=== PATIENT | female | born 1980 ===

== ENCOUNTER 2016-12-22 11:23 | Emergency (ER) | payer BC ==
[2016-12-22 11:45] VITALS: BP 118/81
--- NOTE | 2016-12-22 13:28 | UC ---
Skin Complaint HPI - HPI Summary HPI Summary: pt presents with c/o "bullseye" rash that she noticed this morning. Pt is frequently outside, can not recall being bit by a tick but is concenred about rash under right armpit. Pt reports that she has had flu like symptoms that began 2 weeks ago and have now resolved denies fever but does report body aches , chills and joint aches. - History of Current Complaint Chief Complaint: [employer] Time Seen by Provider: 12/22/16 13:18 Stated Complaint: INSECT BITE ? TICK Hx Obtained From: Patient Hx Last Menstrual Period: 12/01/16 ?: No Onset/Duration: Gradual Onset, Lasting Days - unknown length of time Timing: Constant Onset Severity: Mild Current Severity: Mild Location: Discrete - right axilla Aggravating: Nothing Alleviating: Unknown Associated Signs & Symptoms: Positive: Rash - Allergy/Home Medications Allergies/Adverse Reactions: Allergies Allergy/AdvReac Type Severity Reaction Status Date / Time No Known Allergies Allergy Verified 12/22/16 11:40 Review of Systems Constitutional: Chills, Fatigue Skin: Rash - bulls eye right axilla ENT: Negative Respiratory: Negative Cardiovascular: Negative Gastrointestinal: Negative Genitourinary: Negative Motor: Other - joint discomfort Neurovascular: Negative Musculoskeletal: Arthralgia, Myalgia Neurological: Negative Psychological: Negative All Other Systems Reviewed And Are Negative: Yes PMH/Surg Hx/FS Hx/Imm Hx Previously Healthy: Yes - Surgical History Surgical History: Yes Surgery Procedure, Year, and Place: hernia 2004 - Family History Known Family History: Positive: Other - PMH for influenza - Social History Lives: With Family Alcohol Use: Weekly Substance Use Type: None Smoking Status (MU): Never Smoked Tobacco Physical Exam Triage Information Reviewed: Yes Appearance: Well-Appearing Vital Signs: Initial Vital Signs Temp 99.5 F 12/22/16 11:41 Pulse 82 12/22/16 11:41 Resp 16 12/22/16 11:41 BP 118/81 12/22/16 11:41 Pulse Ox 100 12/22/16 11:41 Eye Exam: Normal ENT Exam: Normal Neck exam: Normal Respiratory Exam: Normal Cardiovascular Exam: Normal Musculoskeletal Exam: Normal Neurological Exam: Normal Psychological Exam: Normal Skin: Positive: rashes - 4 cm bulls eye rash with erythematous ring and central clearing, under right axilla, upperarm Course/Dx - Differential Diagnoses - Skin Complaint Differential Diagnoses: Tick Born Illness, Tinea - Diagnoses Provider Diagnoses: possible lyme disease Discharge - Discharge Plan Condition: Stable Disposition: HOME Prescriptions: DOXYcycline CAP(*) [DOXYcycline 100MG CAP(*)] 100 mg PO Q12H #28 cap Patient Education Materials: Acute Rash (ED) Referrals: Ly Rai MD [Primary Care Provider] - If Needed
[2016-12-23 10:43] LABS: Hematocrit 41 % (35-47); Hemoglobin 13.7 g/dl (12.0-16.0); Mean Corpuscular HGB Conc 34 g/dl (31-36); Mean Corpuscular Hemoglobin 30 pg (27-31); Mean Corpuscular Volume 90 fL (80-97); Mean Platelet Volume 11 um3 (7.4-10.4); Red Blood Count 4.53 10^6/ul (4.0-5.4); Red Cell Distribution Width 13 % (10.5-15); White Blood Count 6.9 10^3/ul (3.5-10.8)
[2016-12-23 10:44] LABS: Add Diff/Slide Review? Slide Review Added; Comments Flag Yes
== END 2016-12-22 13:47 | disposition home or self-care (01) ==
LOC: UCCORT 11:23
DX: S40.861A Insect bite (nonvenomous) of right upper arm, initial encounter (principal); W57.XXXA Bitten or stung by nonvenomous insect and other nonvenomous arthropods, initial encounter; R21 Rash and other nonspecific skin eruption
CPT/HCPCS: 36415; 85025; 86617; 86618; 99202; G0463